=== PATIENT | female | born 1965 | race Caucasian/White ===

== ENCOUNTER 2019-07-24 13:26 | Outpatient (CLI) | payer MEDICARE, SELFPAY ==
--- NOTE | 2019-07-24 14:08 | CT_ITS ---
WS: [id number] CT ABDOMEN WITH CONTRAST HISTORY: FAMILY HX OF RENAL DISEASE Contiguous single phase 5 mm axial imaging performed to the abdomen. Oral contrast has been provided. Coronal and sagittal reformats are submitted. All CT scans at [facility] use at least on e of these dose optimization techniques: automated exposure control; mA and/or kV adjustment per lyric ent size (includes targeted exams where dose is matched to clinical indication); or iterative reconst ruction. CONTRAST: Omnipaque 300; 95 mL IV. DLP: 789.51 mGycm COMPARISON: 09/18/2016 and 02/08/2016 Lower thorax: Lung bases are clear. Small hiatal hernia. Normal heart size. Liver: Normal. No intrahepatic dilatation. Gallbladder: Normal. Pancreas: Normal. Spleen: Normal. Adrenals: Normal. Right kidney: Stable cortical cyst mid RIGHT kidney posteriorly measures 9.5 mm. No solid mass or obs truction. There is an additional too small to characterize 2 mm cortical hypodensity in the superior pole. No renal stone or obstruction. Left kidney: Normal. Aorta: Normal. GI tract: Normal. No adenopathy or free fluid. Abdominal wall: Small fat-containing umbilical hernia. Visualized osseous structures: Advanced degenerative disc disease and spondylosis at T11-12. Severe d isc space narrowing and desiccation at L5-S1. CT/CT abdomen w con* [id number] IMPRESSION: 1. Long-term stability RIGHT renal cyst measures 9.5 mm. 2. No liver cysts. 3. Normal gallbladder.
[2019-07-24] MEDS: iohexol 300 mg/mL 100 mL Btl IV (14:26)
== END 2019-07-24 13:27 | disposition home or self-care (01) ==
LOC: RADWPI 13:36
PROVIDERS: Visit Provider Nurse Practitioner Family
DX: N28.1 Cyst of kidney, acquired (principal); Z84.1 Family history of disorders of kidney and ureter
CPT/HCPCS: 74160; Q9967

== ENCOUNTER 2019-08-10 14:47 | Outpatient (CLI) | payer MEDICARE, SELFPAY ==
--- NOTE | 2019-08-10 | XR_ITS ---
WS: [id number] LATERAL LUMBAR SPINE: 3 view. Lateral radiographs are performed in upright neutral, flexion and extension to the patient's toleranc e. HISTORY: LOW BACK PAIN COMPARISON: None available. Increase in lumbar lordosis. Severe disc space narrowing and desiccation at L5-S1. Sclerosis and oste ophytes with no instability at L5-S1. L4 anterolisthesis by 3.9 mm. No change with flexion. Decreases to 2.6 mm during extension. 2 mm retrolisthesis of L1, L2 and L3 with no instability. XR/XR lumbar spine f/e only [id number] IMPRESSION: 1. L4 anterolisthesis by 3.9 mm with mild instability during extension. 2. Severe degenerative disc disease at L5-S1.
--- NOTE | 2019-08-10 | MR_ITS ---
WS: [id number] MRI LUMBAR SPINE NONCONTRAST HISTORY: LOW BACK PAIN COMPARISON: Lumbar spine CT 02/08/2016 TECHNIQUE: Sagittal and axial multisequence imaging is submitted. Severe cervical, thoracic and lumbar scoliotic changes and degenerative disc disease and osteophytosi s. Slight reversal the normal cervical lordosis. Increase in thoracic kyphosis. Multilevel degenerati ve disc bulging and osteophytes throughout the thoracic spine. Advanced degenerative disc disease at T11-12. Mild increase in lumbar lordosis. L4 anterolisthesis by 2 mm. No marrow edema or fractures. Severe degenerative disc disease at L5-S1 and mild throughout the remaining lumbar spine. Conus terminates normally at L1. L1-L2: Mild annular disc bulging and osteophytic ridging. Mild facet arthropathy with fluid in the fa cet joints. L2-L3: Mild annular disc bulging with a shallow RIGHT paracentral protrusion. Facet joint arthropathy is moderate. Fluid in the facet joints bilaterally. Mild narrowing of the subarticular recess. L3-L4: Annular disc bulging with moderate facet and ligamentum flavum arthropathy. Moderate bilateral foraminal stenosis, LEFT greater than RIGHT. L4-L5: Diffuse annular disc bulging with severe facet joint arthropathy. No significant stenosis. L5-S1: Annular disc bulging and osteophytosis. Disc osteophyte extends into the LEFT foramen with onl y mild narrowing. RIGHT renal cysts. Mild atherosclerosis aorta. MR/MR lumbar spine wo con* [id number] IMPRESSION: 1. Multilevel lumbar spondylosis and facet joint arthropathy. 2. Moderate bilateral foraminal stenosis at L3-4, LEFT greater than RIGHT. 3. Mild subarticular recess narrowing at L2-3. 4. Mild LEFT foraminal narrowing at L5-S1.
== END 2019-08-10 14:48 | disposition home or self-care (01) ==
LOC: RADWPI 14:51
PROVIDERS: PCP Nurse Practitioner Family; Visit Provider Anesthesiology Pain Medicine
DX: M54.5 Low back pain (principal); M51.37 Other intervertebral disc degeneration, lumbosacral region; M47.816 Spondylosis without myelopathy or radiculopathy, lumbar region; M48.061 Spinal stenosis, lumbar region without neurogenic claudication
CPT/HCPCS: 72120; 72148

== ENCOUNTER 2020-02-02 13:03 | Outpatient (CLI) | payer MEDICARE, SELFPAY ==
--- NOTE | 2020-02-02 13:17 | XRR_ITS ---
PROCEDURE INFORMATION: Exam: XR Right Shoulder Exam date and time: 02/02/2020 1:33 PM Age: 54 years old Clinical indication: Patient HX: Right shoulder joint pain; . HX of dislocation 2 years ago TECHNIQUE: Imaging protocol: XR Right shoulder. Views: 2 or more views. COMPARISON: CR Shoulder 2+ views RIGHT* [id number] 10/04/2017 3:12 PM FINDINGS: Bones/joints: No acute fracture. No dislocation. There is severe degeneration of the glenohumeral joint. Loose body in the axillary recess of the glenohumeral joint space. Minimal degeneration of the acromioclavicular joint. The humeral head nearly abuts the undersurface of the acromion compatible with a chronic rotator cuff tear. Soft tissues: No acute soft tissue abnormality. XR/XR shoulder RT min 2V* [id number] IMPRESSION: 1. Severe degeneration of the glenohumeral joint. 2. Chronic rotator cuff tear.
== END 2020-02-02 13:04 | disposition home or self-care (01) ==
LOC: RAD 13:08
PROVIDERS: PCP Nurse Practitioner Family; Visit Provider Nurse Practitioner Family
DX: M25.511 Pain in right shoulder (principal); M75.101 Unspecified rotator cuff tear or rupture of right shoulder, not specified as traumatic
CPT/HCPCS: 73030